=== PATIENT | female | born 1965 | race African-American/Black ===

== ENCOUNTER 2022-07-14 13:45 | Emergency (ER) | payer OTHER ==
[~2022-07-14] VITALS: Ht 162.6 cm; Wt 130.0 kg
[~2022-07-14 13:45] MED LIST: AMLO5TAB4 PO; HYDR25TA PO
[2022-07-14 13:51] VITALS: BP 165/100
== END 2022-07-14 16:24 | disposition home or self-care (01) ==
LOC: ER 14:32
DX: I10 Essential (primary) hypertension (principal); Z91.14 Patient's other noncompliance with medication regimen
CPT/HCPCS: 99281